=== PATIENT | female | born 1955 | race Caucasian/White ===

== ENCOUNTER 2017-01-14 16:32 | Emergency (ER) | payer MEDICAID ==
[~2017-01-14 16:32] MED LIST: ADVAIR 500-501 EACH IH; ALEVE220 M1 PO; ASCORBIC ACID500 MG PO; ATIVAN1 MG PO; CARAFATE DPS1 GM PO; CHERATUSSIN AC473 ML PO; DALIRESP500 MCG PO; DELTASONE DPS10 MG PO; DUONEB DPS3 ML IH; FLEXERIL DPS5 MG PO; FLEXERIL-DPS10 MG PO; FLONASE 0.05% D16 GM NS; HYDROCODON-ACE1 EAC4 PO; LEVAQUIN500 MG PO; LIDODERM PATC1 PATCH TP; LORATADINE10 MG PO; LYRICA75 MG PO; NAPROXEN500 MG PO; OMNICEF DPS300 MG PO; PEPCID40 MG PO; PREDNISONE PO; PROTONIX40 MG PO; SINGULAIR10 MG PO; SPIRIVA18 MCG IH; SYMBICORT 16010.2 GM IH; SYNTHROID50 MCG PO; SYNTHROID75 MCG PO; TESSALON PERLE100 M1 PO; THERA1 EACH PO; ULTRAM DPS50 MG PO; VITAMIN E400 UNIT PO; VOLTAREN 1% GE100 GM TP; XOPENEX HFA15 GM IH; ZITHROMAX500 MG PO; ZOLOFT100 MG PO
--- NOTE | 2017-02-20 04:01 | ER ---
ADMIT: 01/14/2017 RM/LOC: ER [facility] MR#: [id number] [address] [place]DA [place] [address] [place] [address] Emergency Room Report SEX: F AGE: 61 : 1955 DATE: 01/14/2017 ADDENDUM: This patient comes to the ER because of shortness of breath, difficulty breathing, and wheezing that started today. She thinks that her COPD is acting up. She is coughing so much that her back hurts. She has chronic back pain and she thinks that the coughing is irritating her back pain. On physical exam, she does have decreased air movement upon auscultation. Her O2 saturation is 94% on room air. She was given a DuoNeb and Decadron 15 mg IM. Her breathing did become better, but she was having a lot of back issues. She was given Valium 10 mg p.o. I wrote a prescription for Zithromax. She should continue with her albuterol at home, Z-Gary, and follow up with her primary. Please see my T-sheet. CAMILO Cooney / Maxwell Keith MD / dollyl JOB #: [id number] CC: Maxwell Keith MD, Attending Physician Shayan Guerra MD, Family Physician
== END 2017-01-14 18:48 | disposition home or self-care (01) ==
LOC: ER 16:32
DX: J44.0 Chronic obstructive pulmonary disease with (acute) lower respiratory infection (principal); J20.9 Acute bronchitis, unspecified; J44.1 Chronic obstructive pulmonary disease with (acute) exacerbation; E03.9 Hypothyroidism, unspecified

== ENCOUNTER 2017-01-19 08:40 | Emergency (ER) | payer MEDICAID ==
--- NOTE | 2017-01-24 07:21 | ER ---
ADMIT: 01/19/2017 RM/LOC: ER [facility] MR#: [id number] [address] LUCI GILES[place] [address] [place] [address] Emergency Room Report SEX: F AGE: 61 : 1955 DATE: 01/19/2017 TIME: 0840 hours. Please refer to my T-sheet for complete H and P. HISTORY OF PRESENT ILLNESS: Briefly, the patient is a 61-year-old, who was actually over in CAT scan, getting a CAT scan done when she got anxious and very short of breath. She has known history of severe COPD and anxiety. She was transferred over to our Emergency Department secondary to this. She is supposed to get about a swallowing study done today also. PHYSICAL EXAMINATION: VITAL SIGNS: Here, her blood pressure is 148/89, pulse 115, respirations 20, temp 98.3, saturating 98%. GENERAL: Anxious. HEENT: Grossly normal. LUNGS: Expiratory wheezes and prolonged expiration. HEART: Tachy. ABDOMEN: Soft. SKIN: No rash. NEURO: She is very anxious. EMERGENCY DEPARTMENT COURSE: She had an IV. We gave her Decadron 20 IV, Benadryl 25 IV, and Ativan 1 mg IV, which we repeated. Her vital signs improved. She felt much better. Her tachypnea improved. We also gave her DuoNeb. I reviewed the CT scan with the radiologist. It revealed COPD, no acute findings. She felt much better. She actually wanted to go and get her swallowing study done. ASSESSMENT: 1. Chronic obstructive pulmonary disease with exacerbation. 2. Anxiety. PLAN: Continue medications, get her swallowing study done, follow up with Dr. Guerra afterwards this week. Hermes Rutledge MD/ claire JOB #: [id number] CC: Hermes Rutledge MD, Attending Physician Boubacar Guerra MD, Family Physician Boubacar Guerra MD
== END 2017-01-19 12:00 | disposition home or self-care (01) ==
LOC: ER 08:40 → PTH.S 08:40 → EDSTATUS 09:00 → PTH.S 09:00 → RAD.S 09:30 → ER 09:48
DX: J44.1 Chronic obstructive pulmonary disease with (acute) exacerbation (principal); F41.9 Anxiety disorder, unspecified; Z87.891 Personal history of nicotine dependence; Z79.82 Long term (current) use of aspirin; Z79.899 Other long term (current) drug therapy

== ENCOUNTER → 2017-01-22 | Outpatient (CLI) | payer MEDICAID | END | disposition home or self-care (01) | LOC: RAD.S 01-19 10:00 | DX: J44.9 Chronic obstructive pulmonary disease, unspecified (principal); G24.01 Drug induced subacute dyskinesia; R05 Cough ==

== ENCOUNTER → 2017-03-09 | Outpatient (CLI) | payer MEDICAID | END | disposition home or self-care (01) | LOC: PTH.S 09:15 → RAD.S 09:30 | DX: R06.00 Dyspnea, unspecified (principal); J43.9 Emphysema, unspecified; J84.10 Pulmonary fibrosis, unspecified ==

== ENCOUNTER → 2017-07-05 | Outpatient (CLI) | payer MEDICAID | END | disposition home or self-care (01) | DX: G24.01 Drug induced subacute dyskinesia (principal) ==